=== PATIENT | male | born 1990 | race Caucasian/White ===

== ENCOUNTER 2017-04-29 21:35 | Emergency (ER) | payer OTHER ==
[~2017-04-29] VITALS: Ht 172.7 cm; Wt 79.4 kg
[2017-04-29 21:44] VITALS: BP 162/96
--- NOTE | 2017-04-29 22:01 | ED HAND/WRIST INJURY COMPLAINT ---
History of Present Illness General Chief Complaint: Laceration Procedure Stated Complaint: "I WAS MAKING DINNER AND CUT MY HAND" RIGHT FINGER Source: patient, family Exam Limitations: no limitations Vital Signs & Intake/Output Vital Signs & Intake/Output ED Intake and Output 04/30 0000 04/29 1200 Intake Total Output Total Balance Patient 175 lb Weight Weight Reported by Patient Measurement Method Allergies Coded Allergies: No Known Allergies (04/29/17) Triage Note: 26M CUT A SMALL CHUNK OUT OF TIP OF LEFT RING FINGER 3 HOURS AGO, STILL BLEEDING DESPITE PRESSURE AND ELEVATION. PRESSURE DRESSING APPLIED IN TRIAGE. MEDICATED WITH TETANUS. Triage Nurses Notes Reviewed? yes Occurred: just prior to arrival Duration: hour(s): Timing: single episode today Injury Environment: home Severity: moderate Pain/Injury Location: Left: 4th finger. Context: laceration Method of Injury: laceration HPI: 26-year-old male presents emergency department complaining of laceration to left ring finger occurring prior to arrival. Patient states that he was using mandolin to cut potatoes when he accidentally sliced tip of his left ring finger. Patient tried apply dressing and controlled bleeding at home however bleeding continue to soak through his dressing so he reported here to the emergency department. Patient was unsure of his last tetanus vaccine, his tetanus status was updated in triage here in the emergency department. Past History Travel History Traveled to [place] past 21 day No Medical History Any Pertinent Medical History? none Tetanus Vaccine: 04/29/17 Surgical History Surgical History: non-contributory Psychosocial History What is your primary language Malay Tobacco Use: Never used Family History Hx Contributory? No Review of Systems Review of Systems Constitutional: Reports: no symptoms. EENTM: Reports: no symptoms. Respiratory: Reports: no symptoms. Cardiovascular: Reports: no symptoms. GI: Reports: no symptoms. Genitourinary: Reports: no symptoms. Musculoskeletal: Reports: see HPI. Skin: Reports: see HPI. Neurological/Psychological: Reports: no symptoms. Hematologic/Endocrine: Reports: no symptoms. Immunologic/Allergic: Reports: no symptoms. All Other Systems: Reviewed and Negative Physical Exam Physical Exam General Appearance: well developed/nourished, no apparent distress, alert, awake Head: atraumatic, normal appearance Eyes: Bilateral: normal appearance. Ears, Nose, Throat: hearing grossly normal Neck: normal inspection, supple, full range of motion Cardiovascular/Respiratory: no respiratory distress Back: normal inspection, normal range of motion Wrist Left: normal range of motion, normal inspection Wrist Right: normal range of motion, normal inspection Hand Left: normal range of motion, 0.5cm skin avulsion to distal 4th digit, no nail involvement, FROM Hand Right: normal inspection, normal range of motion Neurologic/Tendon: normal sensation, normal motor functions, normal tendon functions Skin: see above Progress Differential Diagnosis: contusion, fracture, laceration, skin avulsion Plan of Care: Current Medications Sig/Nasima Start time Last Medication Dose Stop Time Status Admin Tetanus/Diphtheria 0.5 ML ONCE ONE 04/29 2199 UNVr 04/29 Toxoids Adsorbed 04/29 (Decavac) Wound closed with Dermabond, no further bleeding following closure. Patient tolerated procedure well. Patient educated on signs and symptoms of infection went return to emergency department. Patient in no acute distress. The patient agrees with the plan of care. Departure Departure Disposition: HOME OR SELF CARE Condition: Stable Clinical Impression Primary Impression: Skin avulsion Referrals: Patient Has No Primary Care Dr (PCP/Family) Additional Instructions: Keep area clean and dry, do not get skin glue wet for at least 3 days. Skin glue will dissolve on its own. Once skin glue has dissolves begin applying Neosporin over wound and keeping it covered with a Band-Aid. Monitor for signs of skin infection such as redness, swelling, increasing pain, cloudy drainage from wound. Return with any of these symptoms or other concerns. Please note that there might be incidental findings in your evaluation that are unrelated to the current emergency department visit. Please notify your primary care doctor about this emergency department visit in order to obtain and review all of the testing performed so that these incidental findings can be monitored as needed. If you had an x-ray performed, please understand that some fractures may not be seen on the initial set of x-rays. If your symptoms persist you might need a repeat set of x-rays to check for such a fracture. If you had a laceration evaluated, please understand that foreign bodies such as glass or wood may not be visible to the naked eye or on plain x-rays. If the wound becomes red, swollen, increasingly more painful or if there is any drainage from the wound, please have it reevaluated by a physician for the possibility of a retained foreign body. If you're unable to follow up as outlined in the discharge instructions please return to the emergency department. Thank you for choosing the [facility] Emergency Department for your care. It was a pleasure to serve you today. Departure Forms: Customer Survey General Discharge Information Procedures Laceration/Wound Repair Laceration/Wound Repair: Wound Location: finger Wound's Depth, Shape: skin avulsion Wound Length (cm): 0.5 Wound Explored: clean Betadine Prep? Yes Anesthesia: none Wound Repaired With: Dermabond Date of Last Tetanus: 04/30/17 Tetanus Status: up to date Progress: Wound repaired with Dermabond, no further bleeding following closure. Patient tolerated procedure well.
== END 2017-04-29 22:37 ==
LOC: ERH 21:35
DX: S61.215A Laceration without foreign body of left ring finger without damage to nail, initial encounter (principal); W45.8XXA Other foreign body or object entering through skin, initial encounter; Y92.9 Unspecified place or not applicable; Y93.9 Activity, unspecified
CPT/HCPCS: 90471